=== PATIENT | male | born 1955 | race Caucasian/White ===

== ENCOUNTER 2016-08-10 10:35 | Inpatient (IN) | payer MEDICARE ==
[2016-08-10] VITALS (13 sets, daily range): BP systolic 99–129; BP diastolic 42–62
[~2016-08-10] VITALS: Ht 172.7 cm; Wt 65.6 kg
--- OUTSIDE RECORDS SUMMARY | 2016-08-10 10:40 | XMS REPORT | Continuity of Care Document ---
Author Author [facility] Organization [facility] Address Unknown Phone Unavailable Allergies Active Description Code Type Severity Reaction Onset Reported/Identified Relationship to Patient Clinical Status Yes Sulfonamides [id number] Drug Allergy Moderate N/A Medications Problems Date Dx Coded Attending Type Code Diagnosis Diagnosed By 11/15/2015 Kiko Posada MD 724.5 Backache, unspecified 11/16/2015 Kiko Posada MD 305.1 Tobacco use disorder 05/05/2016 Kiko Posada MD 305.1 Tobacco use disorder 08/10/2016 Kiko Posada MD 786.50 Chest pain, unspecified 08/10/2016 Kiko Posada MD 789.00 Abdominal pain, unspecified Procedures Code Description Performed By Performed On FU6MO Follow up appointment in 6 months 11/16/2015 74195 Office visit - new pt, level 3 11/16/2015 45341 Office visit - new pt, level 3 05/05/2016 [id number] Follow up appointment in 6 months 05/05/2016 53557 Office/outpatient visit; established patient, level 3 05/05/2016 92767 Initial observation care/day high severity 08/10/2016 Results Encounters ACCT No. Visit Date/Time Discharge Status Pt. Type Provider Facility Loc./Unit Complaint [id number] 08/10/2016 03:07:51 2016 03:47:35 DIS Outpatient Kiko Posada MD_Amy
--- OUTSIDE RECORDS SUMMARY | 2016-08-10 10:42 | XMS REPORT | Continuity of Care Document ---
Author Author [facility] Organization [facility] Address Unknown Phone Unavailable Allergies Active Description Code Type Severity Reaction Onset Reported/Identified Relationship to Patient Clinical Status Yes Sulfonamides [id number] Drug Allergy Moderate N/A Medications Problems Date [...] Follow up appointment in 6 months 11/16/2015 57656 Office visit - new pt, level 3 11/16/2015 59264 Office visit - new pt, level 3 05/05/2016 [id number] Follow up appointment in 6 months 05/05/2016 48907 Office/outpatient visit; established patient, level 3 05/05/2016 64183 Initial observation care/day high severity 08/10/2016 Results Encounters ACCT No. Visit Date/Time Discharge Status Pt. Type Provider Facility Loc./Unit Complaint [id number] 08/10/2016 03:07:51 2016 03:47:35 DIS Outpatient Kiko Posada MD_Amy
--- NOTE | 2016-08-10 10:46 | NUR ---
Patient arrives via EMS from [facility]. Alert and oriented X3. Reports right upper quadrant abdominal pain rated 6/[address] Lancaster notified about patient's arrival. 18g IV in RAC infusing LR@125ml/hr. at bedside. Patient remains NPO status. See admission for full assessment.
--- NOTE | 2016-08-10 10:50 | NUR ---
Dr. Lancaster in room to see patient.
[2016-08-10] MEDS ORDERED: HYDROmorphone 1 MG/ML (DILAUDID) SYRINGE IV ONE (11:05)
[2016-08-10] MEDS ORDERED: LACTATED RINGERS 1,000 ML IV SCH (11:05)
[2016-08-10] MEDS ORDERED: HYDROmorphone 1 MG/ML (DILAUDID) SYRINGE IV PRN ×2 (11:05→20:05)
[2016-08-10] MEDS ORDERED: ONDANSETRON 2 MG/ML (Z0FRAN) 2 ML VIAL IV PRN ×2 (11:05→23:05)
[2016-08-10] MEDS ORDERED: NS FLUSH 10 ML PRN IV (11:10)
[2016-08-10] MEDS ORDERED: NS FLUSH 3 ML PRN IV (11:10)
[2016-08-10] MEDS ORDERED: ceFAZolin 2,000 MG in SODIUM CHLORIDE 100 ML IV SCH (11:20)
[2016-08-10] MEDS: KETOROLAC 30 MG/ML (TORADOL) 1 ML VIAL IV SCH ×3 (11:42→19:51)
--- NOTE | 2016-08-10 12:55 | HISTORY AND PHYSICAL ---
HISTORY CHIEF COMPLAINT: Acute cholecystitis HISTORY OF PRESENT ILLNESS: The patient is a 60-year-old who was transferred from the hospital in [place] today with abdominal pain. He was admitted there by Dr. Darian Posada last evening and his workup has included a CT scan that suggests gallbladder wall thickening and gallstones. The patient noted the abrupt onset of epigastric and right upper quadrant abdominal pain about 10 p.m. last evening. It persisted and worsened into the morning hours. He has had milder symptoms in the past year or so on approximately 3 or 4 occasions, but nothing this severe, and nothing that required any workup. His white blood cell count on admission there was 17,000 and apparently this morning it was a bit higher. The patient's bowel habits have been unremarkable, and his health has otherwise been decent. He is disabled due to chronic back pain and lives in [place]. He takes Toradol on a regular basis for this pain. PAST MEDICAL HISTORY: 1. History of TIA. 2. Negative cardiac cath approximately 7 years ago. 3. History of pneumothorax. 4. Chronic smoker. 5. History of IV drug use and alcoholism. PAST SURGICAL HISTORY: 1. Lumbar spinal surgery. 2. Tube thoracostomy. ALLERGIES: Sulfa CURRENT MEDICATIONS: Ultram p.r.n. SOCIAL HISTORY: He smokes 1-1/2 packs of cigarettes every week. He quit using alcohol several years ago and has a remote history of IV drug use. He is no longer using. He is disabled and he is accompanied by his significant other. They live in [place]. REVIEW OF SYSTEMS: GENERAL: His health recently has otherwise been unremarkable except for the above mentioned features. PULMONARY: He does smoke. CARDIOVASCULAR: History of TIA and negative cardiac cath. No history of stroke or OK. He does have a small abdominal aortic aneurysm with intramural thrombus based on the Ct. GASTROINTESTINAL: As above. GENITOURINARY: No itching or burning with urination/ ENDOCRINE: No history of diabetes, thyroid or adrenal disease. HEMATOLOGIC: No easy bruising or bleeding. ONCOLOGIC: No history of malignancy. NEURO: No history of seizures disorder. He has had TIAs as described. PHYSICAL EXAM VITAL SIGNS: Vital signs are pending. GENERAL: The patient is awake and alert, but in some discomfort due to his abdominal pain. HEENT: No scleral icterus NECK: Supple and nontender with no lymphadenopathy. LUNGS: Clear to auscultation bilaterally. HEART: S1, S2 regular rate and rhythm. ABDOMEN: Exquisite tender in the right upper quadrant with Moser sign present. No masses were palpable. The lower quadrants were unremarkable with very little tenderness. SKIN: Warm and dry with no jaundice. NEURO: Grossly intact. EXTREMITIES: No cyanosis or edema. LABORATORY: His white blood cell count was elevated on admission to 17,000. His hemoglobin and platelets were normal. His liver enzymes were unremarkable and his bilirubin was 0.5. Amylase and lipase were normal. IMAGING: CT scan findings as described above. ASSESSMENT: Acute cholecystitis. PLAN: I recommend laparoscopic cholecystectomy. The risks and benefits were discussed including bleeding, injection, injury to the hepatic or common bile duct, possible open procedure and the typical recovery involved. He would like to proceed and this will be done today.
[2016-08-10] MEDS ORDERED: BUPIVACAINE/EPINEPHRINE 0.5%-1:200,000 (MARCAINE) 30 ML VIAL INJ ONE (13:53)
--- NOTE | 2016-08-10 16:30 | NUR ---
Patient to OR via bed.
[2016-08-10] MEDS ORDERED: ALFENTANIL 500 MCG/ML (ALFENTA) 5 ML AMP IV ONE (16:37)
[2016-08-10] MEDS ORDERED: MIDAZOLAM 2 MG/2 ML (VERSED) VIAL ONE (16:37)
[2016-08-10] MEDS ORDERED: PROPOFOL 20 ML IV ONE (16:37)
[2016-08-10] MEDS ORDERED: ONDANSETRON 2 MG/ML (Z0FRAN) 2 ML VIAL ONE (16:59)
[2016-08-10] MEDS ORDERED: diphenhydrAMINE 50 MG/ML INJ (BENADRYL) ONE (16:59)
[2016-08-10] MEDS ORDERED: ROCURONIUM 50 MG/5 ML (ZEMURON) VIAL IV ONE (17:00)
[2016-08-10] MEDS ORDERED: GLYCOPYRROLATE 0.2 MG/ML (ROBINUL) 1 ML VIAL ONE (17:50)
[2016-08-10] MEDS ORDERED: NEOSTIGMINE 1 MG/ML SYRINGE ONE (17:50)
--- NOTE | 2016-08-10 18:17 | Diagnostic Imaging Report ---
INDICATION: Cholecystectomy. EXAMINATION: Operative cholangiogram was performed in the routine fashion with injection of cystic duct stump in surgery. FINDINGS: There are multiple filling defects in the common bile duct, both distally and proximally, compatible with stones. There is some flow of contrast to the duodenum. IMPRESSION: Filling defects in the common duct are present, compatible with multiple stones. There is some flow of contrast to the duodenum. Dictated by: Dictated on workstation # [id number]
--- NOTE | 2016-08-10 19:20 | NUR ---
Patient returns from surgery. Dressings dry and intact. Patient with minimal pain. Vitals stable. Will continue to monitor.
[2016-08-11 00:20] VITALS: BP 102/55
[2016-08-11] MEDS: KETOROLAC 30 MG/ML (TORADOL) 1 ML VIAL IV SCH ×2 (00:34→06:14)
[2016-08-11 03:58] VITALS: BP 113/66
[2016-08-11 05:55] LABS: BASOPHILS % (AUTO) 0 % (0-2); EOSINOPHILS # (AUTO) 0.1 10^3uL; EOSINOPHILS % (AUTO) 1 % (0-4); LYMPHOCYTES # (AUTO) 1.4 X10^3; MEAN CORPUSCULAR HEMOGLOBIN 29.6 PG (26.0-34.0); MEAN CORPUSCULAR HGB CONC 33.9 g/dL (31.0-37.0); MEAN CORPUSCULAR VOLUME 87 FL (80-100); MEAN PLATELET VOLUME 10.2 FL (6.0-9.5); MONOCYTES % (AUTO) 9 % (3-11); NEUTROPHILS # (AUTO) 9.2 X10^3; NEUTROPHILS % (AUTO) 78 % (51-67); PLATELET COUNT 221 10^3uL (150-450); WHITE BLOOD COUNT 11.82 10^3uL (4.0-11.0)
--- NOTE | 2016-08-11 06:16 | NUR ---
Pt rests without complaints since 0100. Rates incisional pain at 7/10 this morning. Schedule toradol and PRN ultram provided. SL intact. Resp even and non labored on RA. Ambulates with minimal difficulty. No needs at this time.
[2016-08-11 07:15] LABS: ALBUMIN 3.4 g/dL (3.4-5.0); ANION GAP 12.6 MEQ/L (3-15); CALCULATED IONIZED CALCIUM 4.4 mg/dL (3.8-4.6); TOTAL PROTEIN 6.1 g/dL (6.4-8.5)
--- NOTE | 2016-08-11 07:15 | NUR ---
Patient sitting up in bed upon shift assessment. Alert and oriented X3. Reports mild abdominal tenderness with movement. 4 laparoscopic incision clean and dry with dressings intact. Denies nausea or SOA. Requests to try clear liquid diet for breakfast and then ADAT. Updated on plan of care for shift including ambulating and pain management. Call light in reach.
[2016-08-11 07:26] VITALS: BP 121/59
[2016-08-11] MEDS ORDERED: TRM50T PO (08:31)
--- NOTE | 2016-08-11 08:47 | Progress Note-A/P (E) ---
Progress Note Subjective Subjective He is doing well today. Pain is controlled except when coughing or sneezing. Ambulated in halls without difficulty. Bilirubin today is normal. Objective VS Vital Signs Date Time Temp Pulse Resp B/P Pulse Ox O2 Delivery O2 Flow Rate FiO2 08/11/16 07:26 97.5 68 20 121/59 96 Room air 64 I&O I & O Past 24 hrs 08/11/16 07:00 Intake Total 634 ml Output Total 1700 ml Balance -1066 ml Intake Oral 634 ml Output Urine Total 1700 ml Current Medications Current Medications Hydromorphone HCl 1 mg Q3H PRN IV; Start 08/10/16 at 20:05 Ketorolac Tromethamine 30 mg Q6HR IV Last administered on 08/11/16 06:14; Admin Dose 30 MG; Start 08/10/16 at 19:27; Stop 08/15/16 at 19:26 Ondansetron HCl 4 mg Q6H PRN IV; Start 08/10/16 at 23:05 Sodium Chloride 10 ml UD PRN IV; Start 08/11/16 at 11:10 Sodium Chloride 3 ml UD PRN IV; Start 08/11/16 at 11:10 Tramadol HCl 100 mg Q4H PRN PO Last administered on 08/11/16 06:14; Admin Dose 100 MG; Start 08/10/16 at 19:00 General Awake, alert, oriented. Lungs No dyspnea Abdomen Dressings intact Neuro Grossly normal Labs, Most Recent- Laboratory Results Past 24 Hrs 08/11/16 05:27: Alanine Aminotransferase (ALT/SGPT) 71, Albumin 3.4, Albumin/Globulin Ratio 1.259, Alkaline Phosphatase 80, Anion Gap 12.6, Aspartate Amino Transf (AST/SGOT ) 60, BUN/Creatinine Ratio 15, Basophils # (Auto) 0.0, Basophils (%) (Auto) 0, Blood Urea Nitrogen 13, Calcium Level 9.1, Calcium/Ionized Calcium Ratio 4.4, Calculated Osmolality 271, Carbon Dioxide Level 25, Chloride Level 106, Creatinine 0.85, Eosinophils # (Auto) 0.1, Eosinophils (%) (Auto) 1, Estimat Glomerular Filtration Rate 110.5, Estimated GFR (Non- 91.3, Glucose Level 99, Hematocrit 38.00, Hemoglobin 12.9, Lymphocytes # (Auto) 1.4, Lymphocytes (%) (Auto) 12, Mean Corpuscular Hemoglobin 29.6, Mean Corpuscular Hemoglobin Concent 33.9, Mean Corpuscular Volume 87, Mean Platelet Volume 10.2, Monocytes # (Auto) 1.0, Monocytes (%) (Auto) 9, Neutrophils # (Auto) 9.2, Neutrophils (%) (Auto) 78, Platelet Count 221, Potassium Level 4.2, Red Blood Count 4.36, Red Cell Distribution Width 13.1, Sodium Level 140, Total Bilirubin 0.5, Total Protein 6.1, White Blood Count 11.82 24 Hr Result Diagram CBC BMP Last 24 Hrs 08/11/16 05:27 Assessment POD#1 Lap cholecystectomy Choledocholithiasis Plan Will discuss case with head of precision targeting; patient will likely need ERCP to clear these fairly large stones from the common duct. He is doing well and likely will be dimissed later today. BISHOP SEBASTIAN MD Aug 11, 2016 08:47
[2016-08-11] MEDS ORDERED: KETOROLAC 30 MG/ML (TORADOL) 1 ML VIAL IV PRN (08:50)
--- NOTE | 2016-08-11 09:00 | NUR ---
MED REC COMPLETED-current med list obtained from patient interview. Conducted by Linden Shannon, PharmD Candidate 2017.
--- NOTE | 2016-08-11 09:10 | NUR ---
NUTRITION ASSESSMENT Level 1 Patient: Baudilio Ling Age/Sex: 60/M Date Screened: 08-11-16 Weight: 144.3#/65.6 kg Height: 68 inches Primary Diagnosis: abdominal pain/lap candi Diet Order: CL Relevant labs: glucose 99 Food allergies: N Nutrition Assessment Criteria Age over 80: N Body Mass Index (BMI) under 19: N Admission Screening Indicates Risk? N Moderate/High Risk Diagnosis: 3 points TPN or PPN: N NPO or clear liquid diet: Yes Serum Glucose <70 or >180: N Hgb A1c >6.7: N/A Total: 3 points Risk Screen: __ Patient at low nutritional risk based on available data; reevaluate in 5-7 days _X_ Patient at moderate nutritional risk based on available data; reevaluate in 3-5 days __ Patient at high nutritional risk; complete Nutrition Assessment within 48 hours of admission. Comments: Pt. had lap candi yesterday; diet advanced to CL. No unintentional weight loss or GI concerns other than with cholecystitis. Will reassess as documented above.
--- NOTE | 2016-08-11 09:51 | OPERATIVE REPORT ---
DATE OF OPERATION: 08/10/2016 PRE-OPERATIVE DIAGNOSIS: Acute cholecystitis with cholelithiasis POST-OPERATIVE DIAGNOSIS: 1. Acute cholecystitis with cholelithiasis 2. Choledocholithiasis. OPERATIVE PROCEDURE: Laparoscopic cholecystectomy with intraoperative cholangiogram. SURGEON: Elio Lancaster MD OFFICE MACHINES TEACHER: KAITLIN Luu ANESTHESIA: General endotracheal anesthetic, Donta Kuhn CRNA INDICATION: The patient is a 60-year-old who was transferred from the hospital in [place] today with epigastric abdominal pain and clinical findings consistent with acute cholecystitis. He was taken to the operating room today for laparoscopic cholecystectomy. DESCRIPTION OF PROCEDURE: The patient was informed of the risks and benefits and agreed to proceed. was taken to the operating room and placed supine on a standard operating table. He was administered preoperative IV antibiotics and general endotracheal anesthetic. When properly anesthetized his abdomen was prepped and draped in the standard sterile fashion. The open technique was used to access the peritoneal cavity through a curvilinear incision just above the umbilicus and #0 Vicryl stay sutures were placed in the fascia. A 10-mm port was inserted and CO2 was insufflated to 15 mmHg. The Olympus 3-D Endoeye laparoscope was used. Under direct vision a subxiphoid 5-mm port and two subcostal right-sided 5-mm ports were placed. The patient was placed in reverse Trendelenburg position and turned slightly to the left. The omentum was adherent to the dome of the gallbladder and this was gently lifted off, exposing a very edematous, distended gallbladder, acutely inflamed. The gallbladder was gently lifted anteriorly and drained of its contents using the laparoscopic needle. It was then able to be manipulated with a 3-prong grasper. This was used to elevate the fundus and additional adhesions between the omentum and gallbladder wall were taken down with either blunt or sharp dissection using the laparoscopic scissors. The lower portion of the gallbladder was able to be visualized. There were adhesions between the duodenum and the infundibulum that were gently taken down along the gallbladder with the scissors and released, gaining access to the region below the gallbladder. The edema made the planes very difficult to identify initially. What appeared to be the lower portion of the gallbladder was gently scored with cautery, once the duodenum was dissected bluntly away a safe distance. This dissection was carried proximally, and I encountered a vessel. A small branch of this vessel began to bleed, and due to the size of the vessel and the pulsatile nature of it I was concerned that this likely represented the right hepatic artery, or a branch thereof. This was spared from the dissection. A plane was created between this vessel and the adjacent gallbladder using gentle cautery and blunt dissection so that the cystic artery could be identified, and once this was delineated, it was clipped twice proximally, once distally and divided between the distal clips. This was required early in the procedure in order to access the rest of the triangle of Calot, which was shrouded in edematous tissue and fluid. Most of the dissection here was done gently with the suction device, and there was some slight oozing from the tissues that made it difficult to see at times. However this slowed down and the suction enabled us to continue the dissection. Eventually I was able to see the small cystic artery entering the gallbladder and the triangle of Calot did not contain any other obvious tubular structures that required control. The cystic duct was clipped proximally and a cholangiogram was obtained, which showed the normal intrahepatic ducts, common hepatic duct and the common bile duct, which contained several stones distally. These appeared to be irregular shaped and were not consistent with bubbles. Repositioning of the patient in revers Trendelenburg position did not change the location of these structures, confirming the presence of stones. The cholangiogram catheter was removed from the cystic duct, 2 clips were then placed distally on the cystic duct and it was divided between the proximal clips. The gallbladder was then carefully removed from its attachments to the liver. There were some small vessels on the lateral aspect on the gallbladder wall that had to be controlled, 2 of these, both controlled with clips to stop some slight oozing. Cautery was then applied to the tips of the vessels to assure complete hemostasis, which was apparent. The gallbladder was carefully removed from its attachments to the liver and its thick rind. The gallbladder was removed under direct vision using an endobag through the umbilical port site. Inspection of the gallbladder wall revealed some very slight oozing, but no active bleeding that required clips or cautery to control. We irrigated copiously and aspirated the contents from above and below the right lobe of the liver. I did apply a sheet of Surgicel to the gallbladder fossa, just to be sure that hemostasis remained complete, which it was. The clips appeared to be intact on the cystic duct and cystic artery. The upper trocars were removed under direct vision and no bleeding was seen from the abdominal wall. The CO2 was let out of the abdomen and the umbilical port was removed. The Vicryl stay sutures were tied at the fascia, and 1 additional #0 Vicryl suture was placed to completely close that defect. The skin was then closed at all 4 incisions with subcuticular 4-0 Monocryl. Dressings were applied. The patient tolerated the procedure without complications. He went to recovery in stable condition. He will likely require ERCP to clear the common bile duct on an elective basis in the near future.
[2016-08-11] MEDS ORDERED: SODIUM CHLORIDE FLUSH 10 ML SYR IV PRN (11:10)
[2016-08-11] MEDS ORDERED: SODIUM CHLORIDE FLUSH 3 ML SYR IV PRN (11:10)
[2016-08-11 11:17] VITALS: BP 146/72
[2016-08-11 15:20] VITALS: BP 135/76
--- NOTE | 2016-08-11 15:50 | Discharge Instructions (E) ---
Discharge Instructions Instructions Change abdominal dressings daily and as needed. May discontinue when dry. No lifting more than 20lbs for two weeks. Activity Instructions No driving for one week after surgery. Doctor's Appointment Follow-up with Dr. Pablo Jamison in [place] as scheduled. Follow-up with Dr. Lancaster in clinic in 1-2 weeks. Call for appointment. Discharge Diet: [place] (Low fat diet) BISHOP LANCASTER MD Aug 11, 2016 15:50
--- NOTE | 2016-08-11 16:57 | NUR ---
Discharge instructions reviewed with patient and spouse. SL removed with catheter tip intact. Pressure held, bandage applied. Abd incision site drsgs changed at this time. Belongings and DC packet sent with patient. Pt dismissed at this time via ambulation accompanied by Jac Mcneal CNA and spouse. Appreciative of cares.
--- NOTE | 2016-08-14 08:49 | DISCHARGE SUMMARY ---
ADMISSION DATE: 08/10/2016 DISCHARGE DATE: 08/11/2016 DISCHARGE DIAGNOSIS: 1. Acute cholecystitis. 2. Choledocholithiasis. PROCEDURES PERFORMED: Laparoscopic cholecystectomy with intraoperative cholangiogram August 10, 2016. PRESENT ILLNESS AND POSITIVE PHYSICAL FINDINGS: The patient is a 60-year-old referred by Dr. Posada in [place] with clinical findings suggesting acute cholecystitis. He was transferred here for surgical care. The patient lives in [place]. SIGNIFICANT X-RAY AND LABORATORY DATA: On postop day 1, white blood cell count was 11.8 and total bilirubin was 0.5. The bilirubin level was 0.5 on August 10 as well. Pathology is pending. HOSPITAL COURSE AND TREATMENT: The patient was admitted and arrangements were made for surgery the same afternoon. This was undertaken and performed laparoscopically. The gallbladder was very edematous, distended and inflamed. Intraoperatively a cholangiogram showed 3 or 4 moderate sized stones in the distal common bile duct confirmed by the radiologist's report. The patient was transferred back to the Med/Surg floor postoperatively where his pain was controlled with a combination of oral and IV narcotic pain meds, along with scheduled Toradol. This was successful. He was able to ambulate the evening of surgery and was tolerating a full liquid diet by lunch the next day. He was deemed ready for discharge. There was no evidence of jaundice or any other symptoms related to the common bile duct stones before or after the procedure. CONDITION AT DISCHARGE: Stable. DISCHARGE INSTRUCTIONS: 1. I did call Dr. Pablo Jamison in [place] to request consultation with the patient and this will be done the following week on an outpatient basis. The patient will likely require ERCP to remove the remaining stones from his common bile duct. He uses tramadol for chronic pain at home, so none was prescribed. 2. He had lifting restrictions for 2 weeks. 3. He is instructed to follow up with me in the clinic in 1 to weeks.
== END 2016-08-11 16:55 | disposition home or self-care (01) | DRG 419 ==
LOC: MED/SURG 10:35 → UNDOADMOB 10:35 → PREOBSVTOIN 10:37
PROVIDERS: ADMIT Surgery; ATTEND Surgery
PROC: 0FT44ZZ Resection of Gallbladder, Percutaneous Endoscopic Approach (ICD-10-PCS; principal; 2016-08-10)
PROC: BF101ZZ Fluoroscopy of Bile Ducts using Low Osmolar Contrast (ICD-10-PCS; 2016-08-10)
DX: K80.42 Calculus of bile duct with acute cholecystitis without obstruction (principal); F19.90 Other psychoactive substance use, unspecified, uncomplicated; F17.210 Nicotine dependence, cigarettes, uncomplicated
CPT/HCPCS: 36415; 74300; 80053; 85025; 88304